=== PATIENT | female | born 1985 | race Caucasian/White ===

== ENCOUNTER 2022-08-03 00:45 | Emergency (ER) | payer OTHER ==
[~2022-08-03] VITALS: Ht 165.1 cm; Wt 133.8 kg
[2022-08-03] MEDS ORDERED: MECLIZINE HCL 25 MG TABLET ONE (02:00)
[2022-08-03] MEDS ORDERED: LORAZEPAM 0.5 MG TABLET PO ONE (02:00)
[2022-08-03] MEDS ORDERED: MECLIZINE HCL 25 MG TABLET PO ONE (02:00)
[2022-08-03] MEDS ORDERED: LORAZEPAM 0.5 MG TABLET ONE (02:00)
[2022-08-03] MEDS ORDERED: ONDANSETRON ODT 4 MG TAB.RAPDIS ONE (02:00)
[2022-08-03] MEDS ORDERED: ONDANSETRON ODT 4 MG TAB.RAPDIS SL ONE (02:00)
[2022-08-03 02:31] LABS: HEMATOCRIT 36.7 % (31.2-41.9); MEAN CORPUSCULAR HEMOGLOBIN 29.8 uug (24.7-32.8); MEAN CORPUSCULAR VOLUME 86.9 fL (75.5-95.3); PLATELET COUNT (AUTO) 116 K/uL (179-408)
[2022-08-03 02:32] LABS: CREATININE 0.7 mg/dL (0.6-1.3); POTASSIUM 3.6 mmol/L (3.5-5.1)
[2022-08-03] MEDS ORDERED: CLON0.1T PO (03:19)
[2022-08-03] MEDS ORDERED: ONDA4TAB5 PO (03:19)
[2022-08-03] MEDS ORDERED: MECL-159 PO (03:19)
[2022-08-03 03:34] VITALS: BP 120/70
--- NOTE | 2022-08-03 03:39 | NUR ---
Patient discharged to home in stable condition. Written and verbal after care instructions given. Patient verbalizes understanding of instructions. Stressed follow up or return to ER for worsening s/s. VSS
--- NOTE | 2022-08-03 03:39 | NUR ---
DC TO HOME, ABLE TO WALK WITH FAM. MEMBER
== END 2022-08-03 03:39 | disposition home or self-care (01) ==
LOC: ER 00:45
DX: I10 Essential (primary) hypertension (principal); R42 Dizziness and giddiness; Z82.3 Family history of stroke; Z90.710 Acquired absence of both cervix and uterus
CPT/HCPCS: 36415; 85025; 93005; A4663; J8597; Q0162